=== PATIENT | male | born 1985 | race Caucasian/White ===

== ENCOUNTER 2017-06-21 10:59 | Emergency (ER) ==
[2017-06-21 11:00] VITALS: BMI 22.1
[2017-06-21 11:05] VITALS: BP 154/91; TEMP 97.6
[2017-06-21] MEDS ORDERED: LIDOCAINE 1 % AMP 5 ML (SUTURES) IM STA (11:14)
[2017-06-21] MEDS ORDERED: ROCEPHIN IM STA (11:14)
--- NOTE | 2017-06-21 11:18 | ED.PDOC ---
General ED Provider: Dr. KARLEE PATRIKC-ER Chief Complaint: Penile Problem Stated Complaint: i have yellow discharge in my underwear Time Seen by Physician: 11:05 Mode of Arrival: Walk-In Information Source: Patient Exam Limitations: No limitations Primary Care Provider: ANDREW IN Nursing and Triage Documentation Reviewed and Agree: Yes Complaint Exam - STD Male Complaint/Exam Onset/Duration: 3 days Symptoms Are: Still present Timing: Intermittent Initial Severity: Mild Current Severity: Mild Location: Reports: Penis Aggravating: Reports: None Alleviating: Reports: None Associated Signs and Symptoms: Reports: Dysuria. Denies: Penile sores, Scrotal pain, Scrotal swelling, Testicular pain, Testicular swelling Related History: Denies: Similar episode, Prior STD Genitalia Exam: Present: Normal findings Differential Diagnoses: Urethritis Review of Systems - Review Of Systems Constitutional: Reports: No symptoms Eyes: Reports: No symptoms Ears, Nose, Mouth, Throat: Reports: No symptoms Respiratory: Reports: No symptoms Cardiac: Reports: No symptoms GI: Reports: No symptoms : Reports: Dysuria, Discharge Musculoskeletal: Reports: No symptoms Skin: Reports: No symptoms Neurological: Reports: No symptoms Endocrine: Reports: No symptoms Hematologic/Lymphatic: Reports: No symptoms All Other Systems: Reviewed and Negative Past Medical History - Past Medical History Previously Healthy: Yes Endocrine: Reports: None Cardiovascular: Reports: None Respiratory: Reports: None Hematological: Reports: None Gastrointestinal: Reports: None Genitourinary: Reports: None Neuro/Psych: Reports: Anxiety, Depression, PTSD Musculoskeletal: Reports: None Cancer: Reports: None - Surgical History General Surgical History: Reports: Unknown - Family History Family History: Reports: Unknown - Social History Smoking Status: Current every day smoker, Heavy tobacco smoker Hx Substance Use: No Alcohol Screening: Occasionally Lives: With family - Immunizations Tetanus Shot up to Date: No Physical Exam - Physical Exam Appearance: Well-appearing, No pain distress, Well-nourished Eyes: NATHALY, EOMI, Conjunctiva clear ENT: Ears normal, Nose normal, Oropharynx normal Neck: Supple Respiratory: Airway patent, Breath sounds clear, Breath sounds equal, Respirations nonlabored Cardiovascular: RRR, Pulses normal, No rub, No murmur GI/: Soft, Nontender, No masses, Bowel sounds normal, No Organomegaly Musculoskeletal: Normal strength, ROM intact, No edema, No calf tenderness Skin: Warm, Dry, Normal color Neurological: Sensation intact, Motor intact, Reflexes intact, Cranial nerves intact, Alert, Oriented Psychiatric: Affect appropriate, Mood appropriate Critical Care Note - Critical Care Note Total Time (mins): 0 Course - Course Orders, Labs, Meds: Orders Category Date Time Status CHLAMYDIA/GC AMPLIFICATION Stat LAB 06/21/17 11:15 Received Ceftriaxone Sodium [Rocephin] MEDS 06/21/17 11:14 Discontinued 250 mg IM ONCE STA Lidocaine HCl/Pf [Lidocaine 1 % Amp 5 ml (Sutures)] MEDS 06/21/17 11:14 Discontinued 0.9 ml IM ONCE STA Medications Discontinued Medications Generic Name Dose Route Start Last Admin Trade Name Levar PRN Reason Stop Dose Admin Ceftriaxone Sodium 250 mg 06/21/17 11:14 Rocephin IM 06/21/17 11:15 ONCE STA Lidocaine HCl 0.9 ml 06/21/17 11:14 Lidocaine 1 % Amp 5 Ml (Sutures) IM 06/21/17 11:15 ONCE STA Vital Signs: Temp Pulse Resp BP Pulse Ox 06/21/17 11:00 97.6 F 98 H 18 154/91 H 97 Departure - Departure Time of Disposition: 11:17 Disposition: HOME SELF-CARE Discharge Problem: Urethritis Instructions: Nonspecific Urethritis in Men (ED) Condition: Good Pt referred to PMD for follow-up: Yes Additional Instructions: doxycycline 100mg bid x 10 days---abstain from intercourse until antbx are completed Allergies/Adverse Reactions: Allergies venom-honey bee [bee venom (honey bee)] Adverse Reaction (Verified 09/21/16 10: 12) Home Medications: Ambulatory Orders Duloxetine HCl [Cymbalta] 60 mg PO BEDTIME 04/11/14 Mirtazapine 30 mg PO BEDTIME 04/08/15 Alprazolam 1 mg PO TID 09/21/16 Dextroamphetamine/Amphetamine [Adderall 30 mg Tablet] 20 mg PO TID 09/21/16 Disposition Discussed With: Patient
== END 2017-06-21 11:45 | disposition home or self-care (01) ==
LOC: ED 10:59
DX: N34.2 Other urethritis (principal); F17.210 Nicotine dependence, cigarettes, uncomplicated
CPT/HCPCS: 36415; 87800; 96372; 99283